=== PATIENT | male | born 1980 | race African-American/Black ===

== ENCOUNTER 2018-03-25 20:52 | Emergency (ER) | payer SELFPAY ==
[~2018-03-25] VITALS: Ht 167.6 cm; Wt 65.8 kg
[2018-03-25] MEDS ORDERED: IV RINGERS SOLUTION,LACTATED 1,000 ML IV SCH (20:58)
--- NOTE | 2018-03-25 20:58 | ED.ADGEN ---
Past History Past Medical History: STD, UTI Smoking: Cigarettes Alcohol Use: Rarely Drug Use: Cocaine, Marijuana Adult General Chief Complaint Chief Complaint ".. I having pain.. .in my lower abdomen.. some pain with peeing.. I was diagnosed with Chlamydia about a month ago.. but I never got it treated....".. " I am having fever.. and feel like I got the flu..." HPI HPI Patient is a 37 year old male who presents with above hx and complaints of epigastric and lower abdomen pain and dysuria. Complaints some fever and generalized malaise.. Pt. previously dx of Chlamydia a month ago and never treated. Patient has been eating heavily. No hx of problems defecation. No history of diarrhea. No specific history of trauma. No history immunosuppression and history of travel. Does not follow-up with a primary care. No history of bad food intake. Review of Systems Review of Systems Constitutional: Denies fever or chills [] Eyes: Denies change in visual acuity, redness, or eye pain [] HENT: Denies nasal congestion or sore throat [] Respiratory: Denies cough or shortness of breath [] Cardiovascular: No additional information not addressed in HPI [] GI: Complaints of abdominal pain, nausea. Denies, vomiting, bloody stools or diarrhea [] : Complains of dysuria Musculoskeletal: Denies back pain or joint pain [] Integument: Denies rash or skin lesions [] Neurologic: Denies headache, focal weakness or sensory changes [] Endocrine: Denies polyuria or polydipsia [] All other systems were reviewed and found to be within normal limits, except as documented in this note. Family History Family History Noncontributory Current Medications Current Medications Current Medications Medications (Trade) Dose Ordered Sig/Malcolm Start Time Stop Time Status Last Admin Dose Admin Azithromycin (Zithromax) 1,000 mg 1X ONCE 03/25/18 23:00 03/25/18 23:02 DC 03/25/18 23:06 1,000 MG Ceftriaxone Sodium 1 gm/ Sodium Chloride 50 ml @ 100 mls/hr 1X ONCE 03/25/18 23:00 03/25/18 23:29 DC 03/25/18 23:05 100 MLS/HR Ceftriaxone Sodium (Rocephin) 1 gm STK-MED ONCE 03/25/18 23:01 03/25/18 23:02 DC Famotidine (Pepcid Vial) 20 mg 1X ONCE 03/25/18 21:00 03/25/18 22:26 DC 03/25/18 21:37 20 MG Ketorolac Tromethamine (Toradol 30mg Vial) 30 mg 1X ONCE 03/25/18 21:00 03/25/18 22:26 DC 03/25/18 21:38 30 MG Lactated Ringer's 1,000 ml @ 1,000 mls/hr Q1H 03/25/18 20:58 03/25/18 22:26 DC 03/25/18 21:37 1,000 MLS/HR Magnesium Hydroxide (Milk Of Magnesia) 2,400 mg 1X ONCE 03/25/18 23:30 03/25/18 23:31 DC 03/26/18 00:18 2,400 MG Metronidazole 100 ml @ 100 mls/hr 1X ONCE 03/25/18 23:00 03/25/18 23:59 DC 03/25/18 23:40 100 MLS/HR Ondansetron HCl (Zofran) 8 mg 1X ONCE 03/25/18 21:00 03/25/18 22:26 DC 03/25/18 21:38 8 MG Sodium Chloride 50 ml @ As Directed STK-MED ONCE 03/25/18 23:01 03/25/18 23:02 DC Allergies Allergies Allergies Coded Allergies Type Severity Reaction Last Updated Verified No Known Allergies Allergy Unknown 03/25/18 Yes Physical Exam Physical Exam Constitutional: Well developed, well nourished, mild distress, non-toxic appearance. [] HENT: Normocephalic, atraumatic, bilateral external ears normal, oropharynx moist, no oral exudates, nose normal. [] Eyes: PERRLA, EOMI, conjunctiva normal, no discharge. [] Neck: Normal range of motion, no tenderness, supple, no stridor. [] Cardiovascular: Tachycardia Heart rate regular rhythm, no murmur [] Lungs & Thorax: Bilateral breath sounds equal at apexes with a few scattered wheezes on auscultation [] Abdomen: Bowel sounds normal, soft, lower pelvic tenderness, very mild epigastric tenderness, no masses, no pulsatile masses. [] Distended. Small penile discharge. Patient declines rectal exam. Testicles are nontender. No true rebound. Skin: Warm, dry, no erythema, no rash. [] Back: No tenderness, no CVA tenderness. [] Extremities: No tenderness, no cyanosis, no clubbing, ROM intact, no edema. [] No psoas or heel tap. Neurologic: Alert and oriented X 3, normal motor function, normal sensory function, no focal deficits noted. [] Psychologic: Affect anxious, judgement normal, mood normal. [] Current Patient Data Vital Signs Vital Signs Date Time Temp Pulse Resp B/P (MAP) Pulse Ox O2 Delivery O2 Flow Rate FiO2 03/26/18 00:46 96 16 122/80 (94) 100 Room Air 03/25/18 21:10 99.0 Lab Results Laboratory Tests Test 03/25/18 21:33 White Blood Count 11.9 x10^3/uL (4.0-11.0) H Red Blood Count 4.61 x10^6/uL (4.30-5.70) Hemoglobin 13.9 g/dL (13.0-17.5) Hematocrit 42.2 % (39.0-53.0) Mean Corpuscular Volume 92 fL (79-100) Mean Corpuscular Hemoglobin 30 pg (25-35) Mean Corpuscular Hemoglobin Concent 33 g/dL (31-37) Red Cell Distribution Width 13.5 % (11.5-14.5) Platelet Count 246 x10^3/uL (140-400) Neutrophils (%) (Auto) 85 % (31-73) H Lymphocytes (%) (Auto) 8 % (24-48) L Monocytes (%) (Auto) 7 % (0-9) Eosinophils (%) (Auto) 0 % (0-3) Basophils (%) (Auto) 1 % (0-3) Neutrophils # (Auto) 10.1 x10^3uL (1.8-7.7) H Lymphocytes # (Auto) 0.9 x10^3/uL (1.0-4.8) L Monocytes # (Auto) 0.8 x10^3/uL (0.0-1.1) Eosinophils # (Auto) 0.0 x10^3/uL (0.0-0.7) Basophils # (Auto) 0.1 x10^3/uL (0.0-0.2) Prothrombin Time 10.2 SEC (9.4-11.4) Prothrombin Time INR 1.0 (0.9-1.1) PTT 27 SEC (23-33) Urine Collection Type Unknown Urine Color Yellow Urine Clarity Cloudy Urine pH 7.0 Urine Specific Dresher 1.025 Urine Protein Neg (NEG-TRACE) Urine Glucose (UA) Neg mg/dL (NEG) Urine Ketones (Stick) Neg mg/dL (NEG) Urine Blood Trace (NEG) Urine Nitrite Neg (NEG) Urine Bilirubin Neg (NEG) Urine Urobilinogen Dipstick 1 mg/dL (0.2 mg/dL) Urine Leukocyte Esterase Small (NEG) Urine RBC 6-10 /HPF (0-2) Urine WBC >40 /HPF (0-4) Urine Squamous Epithelial Cells Few /LPF Urine Bacteria 0 /HPF (0-FEW) Urine Mucus Marked /LPF Sodium Level 139 mmol/L (136-145) Potassium Level 3.4 mmol/L (3.5-5.1) L Chloride Level 102 mmol/L (98-107) Carbon Dioxide Level 26 mmol/L (21-32) Anion Gap 11 (6-14) Blood Urea Nitrogen 7 mg/dL (8-26) L Creatinine 1.2 mg/dL (0.7-1.3) Estimated GFR (Cockcroft-Gault) 83.4 Glucose Level 124 mg/dL (70-99) H Calcium Level 8.5 mg/dL (8.5-10.1) Total Bilirubin 0.5 mg/dL (0.2-1.0) Direct Bilirubin 0.1 mg/dL (0.0-0.2) Aspartate Amino Transferase (AST) 14 U/L (15-37) L Alanine Aminotransferase (ALT) 16 U/L (16-63) Alkaline Phosphatase 64 U/L (46-116) Creatine Kinase 173 U/L (39-308) Troponin I Quantitative 0.017 ng/mL (0-0.055) Total Protein 6.8 g/dL (6.4-8.2) Albumin 3.5 g/dL (3.4-5.0) Amylase Level 108 U/L (25-115) Lipase 111 U/L (73-393) Urine Opiates Screen Neg (NEG) Urine Methadone Screen Neg (NEG) Urine Barbiturates Neg (NEG) Urine Phencyclidine Screen Neg (NEG) Urine Amphetamine/Methamphetamine Neg (NEG) Urine Benzodiazepines Screen Neg (NEG) Urine Cocaine Screen Pos (NEG) Urine Cannabinoids Screen Pos (NEG) Urine Ethyl Alcohol Neg (NEG) Influenza Type A (Rapid) Negative (NEGATIVE) Influenza Type B (Rapid) Negative (NEGATIVE) EKG EKG I interpretation EKG shows a sinus rhythm at 92 bpm. There is some nonspecific contour changes anterior septal region. But no findings acute STEMI with contralateral changes[] Radiology/Procedures Radiology/Procedures My interpretation of acute abdomen film shows no free air under the diaphragm. There is stool in the colon.[] Chest portion film shows no acute cardiopulmonary findings. Course & Med Decision Making Course & Med Decision Making Pertinent Labs and Imaging studies reviewed. (See chart for details) Patient to stay on a clear fluid diet only. Must remain on clear fluid diet for the next 2 days. No milk products no solids. Must allow bowel rest. Return if any concerns. Patient take doxycycline 100 mg twice day for the next 14 days. [] Final Impression Final Impression 1. Abdomen Pain[] 2. Urinary tract infection 3. History of untreated chlamydia 4. Cocaine and Marijuana use 5. Hypokalemia 6. Mild leukocytosis 11.9 Dragon Disclaimer Dragon Disclaimer This electronic medical record was generated, in whole or in part, using a voice recognition dictation system. MAYE LOVE MD Mar 25, 2018 20:58
[2018-03-25] MEDS ORDERED: ONDANSETRON PF 4 MG/2 ML VIAL. IV ONE (21:00)
[2018-03-25] MEDS ORDERED: FAMOTIDINE 20 MG/2 ML VIAL IVP ONE (21:00)
[2018-03-25] MEDS ORDERED: KETOROLAC 30 MG/ML VIAL. IV ONE (21:00)
--- NOTE | 2018-03-25 21:18 | EKG ---
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 Electronically Signed On 03-27-2018 9:15:13 MEASUREMENT SUPERINTENDENT by Fabian Babcock
[2018-03-25 21:57] LABS: HEMATOCRIT 42.2 % (39.0-53.0); HEMOGLOBIN 13.9 g/dL (13.0-17.5); MEAN CORPUSCULAR HEMOGLOBIN 30 pg (25-35); MEAN CORPUSCULAR HGB CONC 33 g/dL (31-37); MEAN CORPUSCULAR VOLUME 92 fL (79-100); RED BLOOD COUNT 4.61 x10^6/uL (4.30-5.70); RED CELL DISTRIBUTION WIDTH 13.5 % (11.5-14.5); WHITE BLOOD COUNT 11.9 x10^3/uL (4.0-11.0)
[2018-03-25 21:58] LABS: BASO # 0.1 x10^3/uL (0.0-0.2); BASO % 1 % (0-3); EOS % 0 % (0-3); LYMPH # 0.9 x10^3/uL (1.0-4.8); LYMPH % 8 % (24-48); MONO # 0.8 x10^3/uL (0.0-1.1); MONO % 7 % (0-9); NEUT # 10.1 x10^3uL (1.8-7.7); NEUT % 85 % (31-73); PLATELET COUNT 246 x10^3/uL (140-400)
[2018-03-25 22:07] LABS: BARBITURATES NEG (NEG); BENZODIAZEPINES NEG (NEG); CANNABINOIDS POS (NEG); COCAINE POS (NEG); METHADONE NEG (NEG); OPIATES NEG (NEG); PHENCYCLIDINE NEG (NEG)
[2018-03-25 22:09] LABS: AMPHETAMINE/METHAMPHETAMINE NEG (NEG)
[2018-03-25 22:13] LABS: ALBUMIN 3.5 g/dL (3.4-5.0); CALCIUM 8.5 mg/dL (8.5-10.1); CREATININE 1.2 mg/dL (0.7-1.3); DIRECT BILIRUBIN 0.1 mg/dL (0.0-0.2); GFR 83.4; POTASSIUM 3.4 mmol/L (3.5-5.1); TOTAL BILIRUBIN 0.5 mg/dL (0.2-1.0); TOTAL PROTEIN 6.8 g/dL (6.4-8.2)
[2018-03-25 22:20] LABS: INFLUENZA A PATIENT NEGATIVE (NEGATIVE); INFLUENZA B PATIENT NEGATIVE (NEGATIVE)
[2018-03-25 22:24] LABS: COLOR,URINE YELLOW
[2018-03-25 22:25] LABS: BACTERIA,URINE 0 /HPF (0-FEW); BILIRUBIN,URINE NEG (NEG); CLARITY,URINE CLOUDY; GLUCOSE,URINE NEG (NEG); NITRITE,URINE NEG (NEG); SQUAMOUS EPITHELIAL CELL,UR FEW /LPF; UROBILINOGEN,URINE 1 mg/dL (0.2 mg/dL); WBC,URINE >40 /HPF (0-4)
[2018-03-25] MEDS ORDERED: AZITHROMYCIN 250 MG TABLET. PO ONE (23:00)
[2018-03-25] MEDS ORDERED: IV NORMAL SALINE 50ML 50 ML ONE (23:01)
[2018-03-25] MEDS ORDERED: cefTRIAXone SODIUM 1 GM VIAL IV ONE (23:01)
[2018-03-25] MEDS ORDERED: DOXY100T PO (23:03)
[2018-03-25] MEDS ORDERED: MAGNESIUM HYDROXIDE 2,400 MG/30 ML ORAL.SUSP. PO ONE (23:30)
--- NOTE | 2018-03-26 00:17 | RAD ---
Acute abdominal series to include a PA chest radiograph 03/25/2018 Clinical History: Abdominal pain since earlier tonight. Two PA digital radiographs of the chest were obtained. Supine and erect AP digital radiographs of the abdomen/pelvis were obtained. No previous studies are available for comparison. The cardiac and mediastinal silhouettes are within normal limits in size and configuration. No pulmonary infiltrate is seen. No pleural effusion or pneumothorax is noted. The abdominal bowel gas pattern is nonobstructive. Surgical clips are seen within the left upper quadrant of the abdomen. There is no evidence of free air. Calcifications overlie the spleen. Calcified phleboliths are seen within the right pelvis. No radiopaque calculus is seen. The osseous structures are grossly intact. Impression: Nonobstructive bowel gas pattern. Electronically signed by: Rene Urias MD (03/26/2018 12:13 AM) [id number]
[2018-03-26 00:46] VITALS: BP 122/80
== END 2018-03-26 00:48 | disposition home or self-care (01) ==
LOC: ER 20:52
DX: N39.0 Urinary tract infection, site not specified (principal); E87.6 Hypokalemia; D72.829 Elevated white blood cell count, unspecified; F17.210 Nicotine dependence, cigarettes, uncomplicated; F12.10 Cannabis abuse, uncomplicated; F14.10 Cocaine abuse, uncomplicated
CPT/HCPCS: 36415; 74022; 80048; 80076; 80307; 81001; 82150; 82550; 83690; 84484; 85025; 85610; 85730; 86592; 87086; 87804; 93005; 96365; 96368; 96375; 99284; J0456; J0696; J1885; J2405; J3490; J7120